=== PATIENT | male | born 1970 | race Hispanic/Latino ===

== ENCOUNTER 2018-10-22 14:53 | Emergency (ER) | payer OTHER ==
[~2018-10-22] VITALS: Ht 180.3 cm; Wt 96.2 kg
[~2018-10-22 14:53] MED LIST: [UNRECOGNIZED DRUG - OTHER] PO
[2018-10-22] MEDS ORDERED: SODIUM CHLORIDE 0.9% 1000ML 1,000 ML IV SCH (15:15)
[2018-10-22] MEDS ORDERED: DIPHENHYDRAMINE HCL INJ 50 MG/ML VIAL IV ONE (15:30)
[2018-10-22] MEDS ORDERED: METOCLOPRAMIDE HCL 10 MG/2ML VIAL IV ONE (15:30)
[2018-10-22] MEDS ORDERED: AMOXICILLIN/CLAVULANATE K 500 MG TAB PO ONE (16:00)
--- NOTE | 2018-10-22 17:18 | Diagnostic Imaging Report ---
History: Headaches Comparison studies: None Technique: Axial images were obtained from the skull base to the vertex. Coronal and sagittal reconstructions obtained from the axial data. Dose modulation, iterative reconstruction, and/or weight based adjustment of the mA/kV was utilized to reduce the radiation dose to as low as reasonably achievable. Findings: Scalp/skull: No abnormalities. No fractures, blastic or lytic lesions. Extra-axial spaces: No masses. No fluid collections. Brain sulci: Appropriate for age. Ventricles: Normal in size and configuration. No hydrocephalus. Parenchyma: No abnormal densities. No masses, hemorrhage, acute or chronic cortical vascular insults. Sellar/suprasellar region: No abnormalities Craniocervical junction: Patent foramen magnum. No Chiari one malformation. IMPRESSION: No abnormalities. Signed by: Dr. Satish Mustafa M.D. on 10/22/2018 5:15 PM
[2018-10-22] MEDS ORDERED: AUGMENTIN 875-1 EACH PO (17:22)
--- NOTE | 2018-10-22 17:23 | Diagnostic Imaging Report ---
History:Headaches Comparison studies: None Technique: Axial images were obtained through the maxillofacial region. Coronal and sagittal images reconstructed from the axial data. Dose modulation, iterative reconstruction, and/or weight based adjustment of the mA/kV was utilized to reduce the radiation dose to as low as reasonably achievable. Intravenous contrast: None Findings: Soft tissues: No abnormalities. Bones: No fractures or bone abnormalities. Orbits: Globes: Intact Extra or intraconal abnormalities: None. Paranasal sinuses: Frontal sinuses: Clear. Frontonasal recesses: Partially opacified bilaterally. Ethmoid air cells: Mild scattered mucosal thickening. Infundibula: Opacified bilaterally. (Patent middle meati). Maxillary sinuses: Minimal left peripheral mucosal thickening. Otherwise clear Sphenoid sinuses: Minimal right peripheral mucosal thickening. Sphenoid ethmoidal recesses: Well opacified bilaterally. Posterior ethmoid air cells: Clear. Superior meatus: Opacified. IMPRESSION: 1. No acute abnormalities. 2. Mild scattered mucosal thickening throughout the paranasal sinuses. No air-fluid levels. 3. Specifically, the frontonasal and sphenoethmoidal recesses, the infundibula and superior meati are opacified but the middle meati are patent. Signed by: Dr. Satish Mustafa M.D. on 10/22/2018 5:20 PM
[2018-10-22] MEDS ORDERED: FIORINAL 50-321 EACH PO (17:24)
[2018-10-22 17:43] VITALS: BP 129/92
== END 2018-10-22 17:44 | disposition home or self-care (01) ==
LOC: ER 14:53
DX: G44.211 Episodic tension-type headache, intractable (principal); G43.119 Migraine with aura, intractable, without status migrainosus; J01.10 Acute frontal sinusitis, unspecified
CPT/HCPCS: 70450; 70486; 99284; J1200; J2765; J7030